=== PATIENT | male | born 1945 | race Caucasian/White ===

== ENCOUNTER 2019-03-06 20:16 | Emergency (ER) | payer MEDICARE, BC ==
--- OUTSIDE RECORDS SUMMARY | 2019-03-06 20:23 | XMS REPORT | Continuity of Care Document ---
:1945 External Reference #:[id number] Author Name Anibal Moreau M.D., [facility], [facility] (transmitted by agent of provider Vianney Hercules) Address [address] 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 Social History Type Date Description Comments Sex Unknown Tobacco Use Start: Unknown End: Former Cigarette Smoker Unknown Smoking Status Reviewed: 02/25/19 Former Cigarette Smoker ETOH Use Occasionally consumes liquor Tobacco Use Start: Unknown End: Patient is a former while in college Unknown smoker Recreational Drug Use Denies Drug Use Exercise Type/Frequency Exercises rarely Allergies, Adverse Reactions, Alerts Active Allergies Reaction Severity Comments Date Lipitor night sweats 40 + MG 06/29/2013 Crestor Night sweats 09/09/2014 Medications Active Medications SIG Qnty Indications Ordering Date Provider Crestor 1 by mouth every 90tabs Anibal Byrd 09/24/2018 5mg Tablets day (until sylvia Moreau M.D., available again) [facility] Lescol 1 tab daily at 90caps Anibal Byrd 09/09/2014 20mg Capsules bedtime Brayden Moreau, (currently on FACJODIE Carpio backorder. Pt taking Crestor until Lescol available again) Cyclobenzaprine HCL 1 po qd prn 30tabs Unknown 10mg Tablets Lexapro 1 by mouth every Unknown 10mg Tablets day Nitrostat one sl q5min up 25tabs Anibal Byrd 0.4mg Tablets Sub to 3 doses as Brayden Moreau, needed as needed JODIE LIGHT chest pain, if no relief call 911 Lorazepam take 1 tablet as 30tabs Unknown 0.5mg Tablets needed qhs Aspirin 1 by mouth every Unknown 81mg Tablets day Acetaminophen Extra 2 po qam 90tabs Unknown Strength 500mg Tablets Mucinex DM prn Unknown Vesicare 1 by mouth every Unknown 10mg Tablets day Multi Vitamin 1 by mouth every Unknown Tablets day Carbidopa-Levodopa ER 1 by mouth every Unknown night at bedtime 25-100mg Tablets ER Escitalopram Oxalate 1 by mouth every Unknown 10mg day Tablets Medications Administered in Office Medication SIG Qnty Indications Ordering Provider Date Inj, Regadenoson, 0.1 MG Anibal Moreau M.D., 10/17/2015 Injection JODIE LIGHT Technetium TC 99M Anibal Moreau M.D., 10/17/2015 Tetrofosmin, Per Unit Dose JODIE LIGHT Up To 40 Millicuries Injection Immunizations Description No Information Available Vital Signs Date Vital Result Comment 02/25/2019 11:09am Height 72 inches 6'0" Weight 298.00 lb with shoes Heart Rate 70 /min BP Systolic Sitting 110 mmHg Lue lg cuff BP Diastolic Sitting 70 mmHg Lue lg cuff BP Systolic Standing 108 mmHg Lue lg cuff BP Diastolic Standing 70 mmHg Lue lg cuff Respiratory Rate 14 /min BMI (Body Mass Index) 40.4 kg/m2 Ejection Fraction 55-60% date 09/23/2015 ECHO 11/20/2017 12:59pm Height 72 inches 6'0" Weight 305.00 lb with shoes Heart Rate 63 /min BP Systolic Sitting 110 mmHg lue lg cuff BP Diastolic Sitting 80 mmHg lue lg cuff BP Systolic Standing 102 mmHg BP Diastolic Standing 60 mmHg Respiratory Rate 20 /min BMI (Body Mass Index) 41.4 kg/m2 Ejection Fraction 55-60% 09/23/2015 echo Results Test Acquired Date Facility Test Result H/L Range Note FLP/Alt Panel 09/09/2018 [facility] Alt 6 U/L Low 7-[address] [place] [address] [phone] Lipid Profile 09/09/2018 [facility] Triglycerides 208 mg/dL 2 (Trig/Chol/HDL) [address] [place] [address] [phone] Cholesterol 150 mg/dL 3 HDL Cholesterol 39.3 mg/dL 4 LDL Cholesterol 69 mg/dL 5 1 FASTING 12 HOUR 2 Desirable: <150 Borderline High: 150-199 High: 200-499 Very High: >500 3 Desirable: <200 Borderline High: 200-239 High: >239 4 Low: <40 Desirable: 40-60 High: >60 5 Desirable: <100 Near Optimal: 100-129 Borderline High: 130-159 High: 160-189 Very High: >189 Procedures Date Code Description Status 02/25/2019 93775 EKG Tracing & Interpretation Completed Medical Devices Description No Information Available Encounters Description No Information Available Assessments Date Code Description Provider 02/25/2019 I25.10 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 Please continue to exercise as able.Follow up:one year after echo Functional Status Description No Information Available Mental Status Description No Information Available Referrals Description No Information Available
[2019-03-06 20:27] VITALS: BP 119/67
--- NOTE | 2019-03-06 21:09 | UC ---
Skin Complaint HPI - HPI Summary HPI Summary: AROUND NOON TODAY PATIENT HAD SUDDEN ONSET OF DISCOMFORT AND SWELLING OF HIS LEFT GREAT TOE. HE SAW WHAT LOOKED TO BE A RUPTURED BLISTER ON THE PLANTAR SURFACE OF HIS LEFT GREAT TOE. IT HAS BEEN DRAINING CLEAR FLUID AND OVER THE COURSE OF THE DAY HIS FOOT AND ANKLE BECAME RED, WARM AND SWOLLEN. NO FEVER. NO JOINT PAIN. DOES NOT RECALL STEPPING ON ANY FOREIGN OBJECTS. NO NEW SHOES. DENIES HISTORY OF DIABETES. 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 - History of Current Complaint Chief Complaint: UCSkin Time Seen by Provider: 03/06/19 20:45 Stated Complaint: FOOT PAIN Hx Obtained From: Patient Onset/Duration: Sudden Onset, Lasting Hours, Still Present Timing: Constant Onset Severity: Moderate Current Severity: Moderate Pain Intensity: 3 Pain Scale Used: 0-10 Numeric Location: Foot (Left) - LEFT GREAT TOE Character: Swelling, Pain, Redness Aggravating Factor(s): Touch Alleviating Factor(s): Nothing Associated Signs & Symptoms: Positive: Drainage, Tenderness - Allergy/Home Medications Allergies/Adverse Reactions: Allergies Allergy/AdvReac Type Severity Reaction Status Date / Time No Known Allergies Allergy Verified 03/06/19 20:27 Home Medications: Home Medications Carbidopa/Levodopa ER 25/100 [Carbidopa-Levo ER 25-100 Tab] 1 tab PO 1200 [History Confirmed 03/06/19] Carbidopa/Levodopa ER 25/100 [Carbidopa-Levo ER 25-100 Tab] 1 tab PO 2000 [History Confirmed 03/06/19] Carbidopa/Levodopa ER 25/100 [Carbidopa-Levo ER 25-100 Tab] 2.5 tab PO BID 03/06 [History Confirmed 03/06/19] Gabapentin CAP(*) [Neurontin 100 mg CAP(*)] 100 mg PO BID 03/06/19 [History Confirmed 03/06/19] Nitroglycerin TAB 0.4 MG* 0.4 mg SL . NEEDED PRN 03/06/19 [History Confirmed 03/06/19] Solifenacin Succinate [Vesicare] 10 mg PO DAILY 03/06/19 [History Confirmed ] PMH/Surg Hx/FS Hx/Imm Hx Other Neurological History: PARKINSONS, PERIPHERAL NEUROPATHY Psychological History: Anxiety Other Cancer History: SKIN CANCER - Surgical History Surgical History: Yes Surgery Procedure, Year, and Place: TONSILLECTOMY 1951, VARICOCELE REPAIR 1975, . SKIN CA 2006, OPEN HEART QUADRUPLE BYPASS 2005 - Social History Alcohol Use: Occasionally Alcohol Amount: 2 drinks/week Substance Use Type: None Smoking Status (MU): Never Smoked Tobacco Review of Systems All Other Systems Reviewed And Are Negative: Yes Constitutional: Positive: Negative Skin: Positive: Other - REDNESS, DRAINAGE Respiratory: Positive: Negative Cardiovascular: Positive: Negative Gastrointestinal: Positive: Negative Musculoskeletal: Positive: Decreased ROM, Edema. Negative: Arthralgia Physical Exam Triage Information Reviewed: Yes Appearance: Well-Appearing, No Pain Distress, Well-Nourished Vital Signs: Initial Vital Signs Temp 96.7 F 03/06/19 20:21 Pulse 80 03/06/19 20:21 Resp 20 03/06/19 20:21 BP 119/67 03/06/19 20:21 Pulse Ox 93 03/06/19 20:21 Vital Signs Reviewed: Yes Eyes: Positive: Conjunctiva Clear ENT: Positive: Hearing grossly normal Neck: Positive: Supple Respiratory: Positive: No respiratory distress, No accessory muscle use Cardiovascular: Positive: Pulses Normal Abdomen Description: Positive: Soft Musculoskeletal: Positive: ROM Limited @ - LEFT GREAT TOE, Edema @ - LEFT GREAT TOE, FOOT, ANKLE Neurological: Positive: Alert Psychological: Positive: Age Appropriate Behavior Skin: Positive: Other - 1CM RUPTURED BLISTER PLANTAR SURFACE LEFT GREAT TOE WITH SEROUS DRAINAGE Course/Dx - Course Course Of Treatment: NO FOREIGN BODY SEEN ON WET READ OF X-RAYS TODAY. OFFICIAL RADIOLOGY READ PENDING. WILL TREAT FOR CELLULITIS WITH BACTRIM TWICE DAILY FOR 10 DAYS. ADVISED HOT SOAKS AND REGULAR DRESSING CHANGES. SPECIMEN SENT FOR CULTURE. TO THE ER IF SYMPTOMS WORSEN. DURING THE ENCOUNTER PATIENT WAS HEARD TO BE WHEEZING INTERMITTENTLY. O2 SAT 93 % ON ROOM AIR. PATIENT REPORTS HIS BASELINE O2 SAT IS ABOUT 95%. HE DENIED ANY RESPIRATORY COMPLAINTS. NO SHORTNESS OF BREATH, CHEST PAIN, NAUSEA. RECHECK OXYGEN SATURATION RANGED FROM 89% TO 95%. LUNGS CLEAR DOWN TO THE BASES. NO ACUTE INTERVENTION TODAY. FOLLOW-UP WITH PCP NEXT WEEK. TO THE ER WITHOUT FAIL IF HE DEVELOPS SHORTNESS OF BREATH, CHEST PAIN, NAUSEA OR ANY OTHER CONCERNING SYMPTOMS. - Diagnoses Provider Diagnosis: Cellulitis of great toe, left Discharge ED - Sign-Out/Discharge Documenting (check all that apply): Patient Departure All imaging exams completed and their final reports reviewed: No - Discharge Plan Condition: Stable Disposition: HOME Prescriptions: Sulfamethox/Trimethoprim DS* [Bactrim DS 800/160 TAB*] 1 tab PO BID #18 tab Patient Education Materials: Cellulitis (ED) Referrals: Mu Del Rosario MD [Primary Care Provider] - 1 Week Additional Instructions: YOU HAVE A SKIN INFECTION LIKELY STEMMING FROM THE RUPTURED BLISTER ON THE BOTTOM OF YOUR LEFT GREAT TOE. TAKE THE ANTIBIOTICS TWICE DAILY FOR THE FULL 10 DAYS. HOT SOAKS 4 TIMES DAILY ABLE. IN BETWEEN SOAKS KEEP THE TOE CLEAN AND DRY AND COVERED WITH A NONSTICK BANDAGE UNTIL IT HEALS. SWAB OBTAINED AND SENT FOR CULTURE. WE WILL CALL YOU IF YOUR MEDICATION NEEDS TO BE CHANGED. GO TO THE ER WITHOUT FAIL IF YOU DEVELOP CONTINUED SPREADING REDNESS OF THE SKIN , PERSISTENT PURULENT DRAINAGE, INCREASED PAIN/JOINT PAIN, FEVER OR ANY OTHER CONCERNING SYMPTOMS. YOUR OXYGEN SATURATION RANGED FROM 89% TO 96% WHILE HERE IN THE URGENT CARE. YOU HAVE NO RESPIRATORY SYMPTOMS AT PRESENT NO ACUTE INTERVENTION TODAY HOWEVER I RECOMMEND YOU FOLLOW-UP WITH YOUR PCP WITHIN A WEEK FOR A RECHECK. GO TO THE ER WITHOUT FAIL IF YOU DEVELOP SHORTNESS OF BREATH, CHEST PAIN, NAUSEA , DIZZINESS OR ANY OTHER CONCERNING SYMPTOMS. - Billing Disposition and Condition Condition: STABLE Disposition: Home
[2019-03-06] MEDS ORDERED: Sulfamethox/Trimethoprim DS 800/160* TAB PO ONE (21:21)
--- NOTE | 2019-03-07 14:06 | UC ---
- Progress Note Progress Note: PROGRESS NOTE: LAB RESULTS:wound Gram stain and culture from the patient's toe shows positive staph aureus, but negative MRSA. Wound culture is pending. MDM:patient is on Bactrim and this should cover the staph aureus. Final wound culture is pending. At this time, no change in treatment. Bonifacio Goddard MD Course/Dx - Diagnoses Provider Diagnoses: Cellulitis of great toe, left Discharge ED - Sign-Out/Discharge Documenting (check all that apply): Post-Discharge Follow Up All imaging exams completed and their final reports reviewed: No - Discharge Plan Condition: Stable Disposition: HOME Prescriptions: Sulfamethox/Trimethoprim DS* [Bactrim DS 800/160 TAB*] 1 tab PO BID #18 tab Patient Education Materials: Cellulitis (ED) Referrals: Mu Del Rosario MD [Primary Care Provider] - 1 Week Additional Instructions: YOU HAVE A SKIN INFECTION LIKELY STEMMING FROM THE RUPTURED BLISTER ON THE BOTTOM OF YOUR LEFT GREAT TOE. TAKE THE ANTIBIOTICS TWICE DAILY FOR THE FULL 10 DAYS. HOT SOAKS 4 TIMES DAILY ABLE. IN BETWEEN SOAKS KEEP THE TOE CLEAN AND DRY AND COVERED WITH A NONSTICK BANDAGE UNTIL IT HEALS. SWAB OBTAINED AND SENT FOR CULTURE. WE WILL CALL YOU IF YOUR MEDICATION NEEDS TO BE CHANGED. GO TO THE ER WITHOUT FAIL IF YOU DEVELOP CONTINUED SPREADING REDNESS OF THE SKIN , PERSISTENT PURULENT DRAINAGE, INCREASED PAIN/JOINT PAIN, FEVER OR ANY OTHER CONCERNING SYMPTOMS. YOUR OXYGEN SATURATION RANGED FROM 89% TO 96% WHILE HERE IN THE URGENT CARE. YOU HAVE NO RESPIRATORY SYMPTOMS AT PRESENT NO ACUTE INTERVENTION TODAY HOWEVER I RECOMMEND YOU FOLLOW-UP WITH YOUR PCP WITHIN A WEEK FOR A RECHECK. GO TO THE ER WITHOUT FAIL IF YOU DEVELOP SHORTNESS OF BREATH, CHEST PAIN, NAUSEA , DIZZINESS OR ANY OTHER CONCERNING SYMPTOMS. - Billing Disposition and Condition Condition: STABLE Disposition: Home
--- NOTE | 2019-03-07 14:25 | UC ---
- Progress Note Progress Note: PROGRESS NOTE: X RAY RESULTS:TECHNIQUE: 3 views of the left great toe were obtained. FINDINGS: Depicted on the lateral and oblique view of the left great toe there is a 3 mm faint hyperdense focus in the soft tissues plantar from the left great toe distal phalanx. The bones are otherwise intact and anatomically aligned. IMPRESSION: Possible 3 mm foreign body in the soft tissues plantar from the left great toe distal phalanx. MDM: patient with cellulitis with the x-ray reading of possible tiny foreign body in the soft tissue of the left great toe. The plan is to call this patient and have him follow up for evaluation of both his cellulitis as well as a possible foreign body. Bonifacio Goddard MD Course/Dx - Diagnoses Provider Diagnoses: Cellulitis of great toe, left Discharge ED - Sign-Out/Discharge Documenting (check all that apply): Post-Discharge Follow Up All imaging exams completed and their final reports reviewed: Yes - Discharge Plan Condition: Stable Disposition: HOME Prescriptions: Sulfamethox/Trimethoprim DS* [Bactrim DS 800/160 TAB*] 1 tab PO BID #18 tab Patient Education Materials: Cellulitis (ED) Referrals: Mu Del Rosario MD [Primary Care Provider] - 1 Week Additional Instructions: YOU HAVE A SKIN INFECTION LIKELY STEMMING FROM THE RUPTURED BLISTER ON THE BOTTOM OF YOUR LEFT GREAT TOE. TAKE THE ANTIBIOTICS TWICE DAILY FOR THE FULL 10 DAYS. HOT SOAKS 4 TIMES DAILY ABLE. IN BETWEEN SOAKS KEEP THE TOE CLEAN AND DRY AND COVERED WITH A NONSTICK BANDAGE UNTIL IT HEALS. SWAB OBTAINED AND SENT FOR CULTURE. WE WILL CALL YOU IF YOUR MEDICATION NEEDS TO BE CHANGED. GO TO THE ER WITHOUT FAIL IF YOU DEVELOP CONTINUED SPREADING REDNESS OF THE SKIN , PERSISTENT PURULENT DRAINAGE, INCREASED PAIN/JOINT PAIN, FEVER OR ANY OTHER CONCERNING SYMPTOMS. YOUR OXYGEN SATURATION RANGED FROM 89% TO 96% WHILE HERE IN THE URGENT CARE. YOU HAVE NO RESPIRATORY SYMPTOMS AT PRESENT NO ACUTE INTERVENTION TODAY HOWEVER I RECOMMEND YOU FOLLOW-UP WITH YOUR PCP WITHIN A WEEK FOR A RECHECK. GO TO THE ER WITHOUT FAIL IF YOU DEVELOP SHORTNESS OF BREATH, CHEST PAIN, NAUSEA , DIZZINESS OR ANY OTHER CONCERNING SYMPTOMS. - Billing Disposition and Condition Condition: STABLE Disposition: Home
== END 2019-03-06 21:37 | disposition home or self-care (01) ==
LOC: UCEAST 20:16
DX: L03.032 Cellulitis of left toe (principal); G20 Parkinson's disease; G62.9 Polyneuropathy, unspecified; Z85.828 Personal history of other malignant neoplasm of skin
CPT/HCPCS: 87070; 87077; 87186; 87205; 87640; 87641; 99212; A9270-GY; G0463

== ENCOUNTER 2020-02-25 12:41 | Inpatient (IN) ==
[2020-02-25 14:20] LABS: ABS Eosinophils 0.1 10^3/ul (0-0.6); ABS Lymphocytes 1.6 10^3/ul (1.0-4.8); ABS Monocytes 0.5 10^3/ul (0-0.8); ABS Neutrophils 4.1 10^3/ul (1.5-7.7); Eosinophil % 1.4 %; Hematocrit 52 % (42-52); Hemoglobin 16.9 g/dL (14.0-18.0); Lymphocyte % 25.2 %; Mean Corpuscular HGB Conc 33 g/dL (31-36); Mean Corpuscular Hemoglobin 31 pg (27-31); Mean Corpuscular Volume 96 fL (80-94); Mean Platelet Volume 9.8 fL (7.4-10.4); Nucleated Red Blood Cells % 0.1; Platelet Count 180 10^3/uL (150-450); Red Blood Count 5.45 10^6 /uL (4.18-5.48); Red Cell Distribution Width 15 % (10-15); White Blood Count 6.3 10^3/uL (3.5-10.8)
[2020-02-25 14:33] LABS: Albumin 4.1 g/dL (3.2-5.2); Albumin/Globulin Ratio 1.4 (1-3); BUN/Creatinine Ratio 23.9 (8-20); Calcium 9.6 mg/dL (8.6-10.3); EGFR African American 102.7 (>60); EGFR Non-African American 84.9 (>60); Globulin 2.9 g/dL (2-4); Potassium 4.5 mmol/L (3.5-5.0); Total Bilirubin 0.9 mg/dL (0.2-1.0)
[2020-02-25] MEDS: NS 0.9% 1000 ml BAG 1,000 ML IV SCH ×2 (14:51→17:42)
[2020-02-25 17:51] LABS: Urine Appearance Cloudy; Urine Bilirubin Negative (Negative); Urine Blood Negative (Negative); Urine Color Yellow; Urine Glucose Negative (Negative); Urine Ketones Negative (Negative); Urine Nitrite Negative (Negative); Urine Protein Negative (Negative); Urine Specific Gravity 1.008 (1.010-1.030); Urine Urobilinogen Negative (Negative)
[2020-02-25 17:54] LABS: Urine Bacteria Absent (Absent); Urine Red Blood Cell Absent (Absent); Urine Squamous Epithelial Cell Present (Absent); Urine White Blood Cell 2+(11-20/hpf) (Absent)
[2020-02-25] MEDS ORDERED: NS 0.9% 1000 ml BAG 1,000 ML IV SCH (19:15)
[2020-02-25] MEDS ORDERED: Carbidopa/Levodop 25/100 MG TAB PO SCH (21:00)
[2020-02-25] MEDS: Heparin 5000 UNITS/ML 1 mL VIAL SUBCUT SCH (21:52)
[2020-02-25] MEDS: Carbidopa/Levodop 25/100 MG TAB PO SCH (21:56)
[2020-02-26] MEDS: Heparin 5000 UNITS/ML 1 mL VIAL SUBCUT SCH ×3 (06:05→21:25)
[2020-02-26 07:21] LABS: ABS Eosinophils 0.1 10^3/ul (0-0.6); ABS Lymphocytes 1.9 10^3/ul (1.0-4.8); ABS Monocytes 0.6 10^3/ul (0-0.8); ABS Neutrophils 3.6 10^3/ul (1.5-7.7); Eosinophil % 2.3 %; Hematocrit 49 % (42-52); Hemoglobin 15.9 g/dL (14.0-18.0); Lymphocyte % 30.6 %; Mean Corpuscular HGB Conc 33 g/dL (31-36); Mean Corpuscular Hemoglobin 31 pg (27-31); Mean Corpuscular Volume 96 fL (80-94); Mean Platelet Volume 9.7 fL (7.4-10.4); Platelet Count 173 10^3/uL (150-450); Red Blood Count 5.09 10^6 /uL (4.18-5.48); Red Cell Distribution Width 15 % (10-15); White Blood Count 6.3 10^3/uL (3.5-10.8)
[2020-02-26 07:25] LABS: Albumin 3.7 g/dL (3.2-5.2); Calcium 9.2 mg/dL (8.6-10.3); Potassium 4.6 mmol/L (3.5-5.0); Total Bilirubin 0.9 mg/dL (0.2-1.0)
[2020-02-26 07:31] LABS: Albumin/Globulin Ratio 1.4 (1-3); EGFR African American 123.5 (>60); EGFR Non-African American 102.1 (>60); Globulin 2.7 g/dL (2-4); Total Protein 6.4 g/dL (6.4-8.9)
[2020-02-26] MEDS: Carbidopa/Levodop 25/100 MG TAB PO SCH ×5 (08:52→21:25)
[2020-02-26] MEDS: Aspirin EC 81 mg TAB.EC (enteric coated) PO SCH (08:54)
[2020-02-26] MEDS: Polyethylene Glycol 3350 17 GM PACKET PO SCH (08:56)
[2020-02-26] MEDS: Solifenacin 5 mg TAB (NF) PO SCH (08:59)
[2020-02-26] MEDS: FLUVASTATIN PO SCH (08:59)
[2020-02-26] MEDS ORDERED: Carbidopa/Levodop 25/100 MG TAB PO SCH (12:00)
[2020-02-26] MEDS ORDERED: NS 0.9% 1000 ml BAG 1,000 ML IV SCH (18:30)
[2020-02-27] MEDS: Heparin 5000 UNITS/ML 1 mL VIAL SUBCUT SCH ×3 (05:40→20:58)
[2020-02-27] MEDS: Aspirin EC 81 mg TAB.EC (enteric coated) PO SCH (08:36)
[2020-02-27] MEDS: Polyethylene Glycol 3350 17 GM PACKET PO SCH (08:37)
[2020-02-27] MEDS: FLUVASTATIN PO SCH (08:37)
[2020-02-27] MEDS: Carbidopa/Levodop 25/100 MG TAB PO SCH ×5 (08:42→20:58)
[2020-02-27] MEDS: Solifenacin 5 mg TAB (NF) PO SCH (08:42)
[2020-02-27] MEDS: Amoxicillin/Clavul 875/125 TAB (Augmentin 875 tab) PO SCH ×2 (12:21→20:58)
[2020-02-28] MEDS: Heparin 5000 UNITS/ML 1 mL VIAL SUBCUT SCH ×3 (05:23→20:38)
[2020-02-28] MEDS: Amoxicillin/Clavul 875/125 TAB (Augmentin 875 tab) PO SCH ×2 (08:54→20:37)
[2020-02-28] MEDS: Aspirin EC 81 mg TAB.EC (enteric coated) PO SCH (08:56)
[2020-02-28] MEDS: Carbidopa/Levodop 25/100 MG TAB PO SCH ×5 (08:59→20:37)
[2020-02-28] MEDS: Solifenacin 5 mg TAB (NF) PO SCH (09:02)
[2020-02-28] MEDS: Polyethylene Glycol 3350 17 GM PACKET PO SCH (09:02)
[2020-02-28] MEDS: FLUVASTATIN PO SCH (09:02)
[2020-02-28] MEDS ORDERED: Iohexol 350 (CONTRAST) 500 ML MDV IV ONE (18:38)
[2020-02-28] MEDS ORDERED: Heparin DRIP 25,000 UNITS BAG 25,000 UNITS/500 ML BAG IV SCH (21:30)
[2020-02-28 21:40] LABS: ABS Eosinophils 0.2 10^3/ul (0-0.6); ABS Lymphocytes 1.5 10^3/ul (1.0-4.8); ABS Monocytes 0.6 10^3/ul (0-0.8); ABS Neutrophils 3.6 10^3/ul (1.5-7.7); Eosinophil % 3.6 %; Hematocrit 46 % (42-52); Hemoglobin 15.3 g/dL (14.0-18.0); Lymphocyte % 25.5 %; Mean Corpuscular HGB Conc 33 g/dL (31-36); Mean Corpuscular Hemoglobin 32 pg (27-31); Mean Corpuscular Volume 95 fL (80-94); Mean Platelet Volume 9.5 fL (7.4-10.4); Platelet Count 171 10^3/uL (150-450); Red Blood Count 4.84 10^6 /uL (4.18-5.48); Red Cell Distribution Width 14 % (10-15); White Blood Count 5.9 10^3/uL (3.5-10.8)
[2020-02-28] MEDS ORDERED: Heparin 5000 UNITS/ML 1 mL VIAL IV SCH (22:00)
[2020-02-28 22:02] LABS: EGFR African American 97.6 (>60); EGFR Non-African American 80.6 (>60)
[2020-02-29 07:05] LABS: ABS Eosinophils 0.2 10^3/ul (0-0.6); ABS Lymphocytes 2.2 10^3/ul (1.0-4.8); ABS Monocytes 0.8 10^3/ul (0-0.8); ABS Neutrophils 4.4 10^3/ul (1.5-7.7); Hematocrit 47 % (42-52); Hemoglobin 15.6 g/dL (14.0-18.0); Lymphocyte % 29.1 %; Mean Corpuscular HGB Conc 33 g/dL (31-36); Mean Corpuscular Hemoglobin 32 pg (27-31); Mean Corpuscular Volume 96 fL (80-94); Mean Platelet Volume 9.5 fL (7.4-10.4); Platelet Count 160 10^3/uL (150-450); Red Blood Count 4.93 10^6 /uL (4.18-5.48); Red Cell Distribution Width 15 % (10-15); White Blood Count 7.6 10^3/uL (3.5-10.8)
[2020-02-29] MEDS: Polyethylene Glycol 3350 17 GM PACKET PO SCH (08:35)
[2020-02-29] MEDS: Aspirin EC 81 mg TAB.EC (enteric coated) PO SCH (08:36)
[2020-02-29] MEDS: Amoxicillin/Clavul 875/125 TAB (Augmentin 875 tab) PO SCH ×2 (08:36→21:25)
[2020-02-29] MEDS: Carbidopa/Levodop 25/100 MG TAB PO SCH ×5 (08:38→21:26)
[2020-02-29] MEDS: FLUVASTATIN PO SCH (08:40)
[2020-02-29] MEDS: Solifenacin 5 mg TAB (NF) PO SCH (08:41)
[2020-03-01] MEDS ORDERED: Perflutren Lipid Microsphere 3 ML VIAL ONE (08:04)
[2020-03-01] MEDS: Carbidopa/Levodop 25/100 MG TAB PO SCH ×5 (09:12→21:01)
[2020-03-01] MEDS: Amoxicillin/Clavul 875/125 TAB (Augmentin 875 tab) PO SCH ×2 (09:15→21:00)
[2020-03-01] MEDS: FLUVASTATIN PO SCH (09:18)
[2020-03-01] MEDS: Polyethylene Glycol 3350 17 GM PACKET PO SCH (09:18)
[2020-03-01] MEDS: Solifenacin 5 mg TAB (NF) PO SCH (09:18)
[2020-03-01] MEDS: Aspirin EC 81 mg TAB.EC (enteric coated) PO SCH (09:19)
[2020-03-02] MEDS: Polyethylene Glycol 3350 17 GM PACKET PO SCH (09:38)
[2020-03-02] MEDS: FLUVASTATIN PO SCH (09:38)
[2020-03-02] MEDS: Carbidopa/Levodop 25/100 MG TAB PO SCH ×5 (09:48→20:05)
[2020-03-02] MEDS: CMC:Solifenacin 5 mg TAB (NF) PO SCH (09:50)
[2020-03-02] MEDS: Aspirin EC 81 mg TAB.EC (enteric coated) PO SCH (09:51)
[2020-03-02] MEDS: Amoxicillin/Clavul 875/125 TAB (Augmentin 875 tab) PO SCH ×2 (09:51→20:05)
[2020-03-03] MEDS: Aspirin EC 81 mg TAB.EC (enteric coated) PO SCH (08:50)
[2020-03-03] MEDS: FLUVASTATIN PO SCH (08:52)
[2020-03-03] MEDS: CMC:Solifenacin 5 mg TAB (NF) PO SCH (08:52)
[2020-03-03] MEDS: Polyethylene Glycol 3350 17 GM PACKET PO SCH (08:54)
[2020-03-03] MEDS: Carbidopa/Levodop 25/100 MG TAB PO SCH ×3 (09:02→15:45)
[2020-03-03 11:09] VITALS: BP 69/38
== END 2020-03-03 16:15 | disposition home or self-care (01) | DRG 312 ==
LOC: ED 12:41 → MEDTELE 12:41
PROVIDERS: ADMIT Internal Medicine; ATTEND Internal Medicine

== ENCOUNTER 2020-06-13 15:24 | Observation (INO) ==
[2020-06-13 18:54] LABS: ABS Eosinophils 0.2 10^3/ul (0-0.6); ABS Lymphocytes 1.7 10^3/ul (1.0-4.8); ABS Monocytes 0.5 10^3/ul (0-0.8); ABS Neutrophils 2.8 10^3/ul (1.5-7.7); Hematocrit 45 % (42-52); Lymphocyte % 33.3 %; Mean Corpuscular HGB Conc 33 g/dL (31-36); Mean Corpuscular Hemoglobin 32 pg (27-31); Mean Corpuscular Volume 97 fL (80-94); Mean Platelet Volume 9.1 fL (7.4-10.4); Platelet Count 171 10^3/uL (150-450); Red Blood Count 4.67 10^6 /uL (4.18-5.48); Red Cell Distribution Width 14 % (10-15); White Blood Count 5.2 10^3/uL (3.5-10.8)
[2020-06-13] MEDS ORDERED: NS 0.9% 1000 ml BAG 1,000 ML IV ONE (19:43)
[2020-06-13 19:46] LABS: ALT 5 U/L (7-52); AST 12 U/L (13-39); Albumin 3.9 g/dL (3.2-5.2); Albumin/Globulin Ratio 1.4 (1-3); Alkaline Phosphatase 35 U/L (34-104); Blood Urea Nitrogen 16 mg/dL (6-24); CO2 Carbon Dioxide 30 mmol/L (22-32); Calcium 8.9 mg/dL (8.6-10.3); Globulin 2.7 g/dL (2-4); Glucose 79 mg/dL (70-100); Total Protein 6.6 g/dL (6.4-8.9)
[2020-06-13 20:28] LABS: BUN/Creatinine Ratio 19.8 (8-20); EGFR African American 112.7 (>60); EGFR Non-African American 93.2 (>60)
[2020-06-13 20:33] LABS: Anion Gap 8 mmol/L (2-11); Chloride 103 mmol/L (101-111); Potassium 3.8 mmol/L (3.5-5.0); Sodium 141 mmol/L (135-145)
[2020-06-13] MEDS ORDERED: Iodixanol (CONTRAST) 320 MG/ML 100 ML SDV IV ONE (20:50)
[2020-06-14] MEDS ORDERED: TADALAFIL 20 MG PO PRN (00:38)
[2020-06-14 01:12] LABS: C Reactive Protein < 1.00 mg/L (<8.01)
[2020-06-14 01:55] LABS: Ferritin 59.6 ng/mL (24-336)
[2020-06-14 07:21] LABS: Urine Appearance Cloudy; Urine Bilirubin Negative (Negative); Urine Blood Negative (Negative); Urine Color Yellow; Urine Glucose Negative (Negative); Urine Ketones Trace (Negative); Urine Nitrite Positive (Negative); Urine Protein Negative (Negative); Urine Specific Gravity 1.023 (1.010-1.030); Urine Urobilinogen Negative (Negative)
[2020-06-14 07:24] LABS: Urine Bacteria Absent (Absent); Urine Red Blood Cell 3+(>10/hpf) (Absent); Urine Squamous Epithelial Cell Present (Absent); Urine White Blood Cell 3+(>20/hpf) (Absent)
[2020-06-14] MEDS ORDERED: Perflutren Lipid Microsphere 3 ML VIAL ONE (07:59)
[2020-06-14] MEDS: Vitamin THERAPEUTIC TAB PO SCH (09:20)
[2020-06-14] MEDS: Aspirin EC 81 mg TAB.EC (enteric coated) PO SCH (09:21)
[2020-06-14] MEDS: CMCS: Rosuvastatin 5 mg TAB (NF) PO SCH (09:21)
[2020-06-14] MEDS: Carbidopa/Levodop 25/100 MG TAB PO SCH ×5 (09:30→20:16)
[2020-06-15 06:13] LABS: ABS Eosinophils 0.2 10^3/ul (0-0.6); ABS Lymphocytes 1.5 10^3/ul (1.0-4.8); ABS Monocytes 0.9 10^3/ul (0-0.8); ABS Neutrophils 4.7 10^3/ul (1.5-7.7); Eosinophil % 2.3 %; Hematocrit 45 % (42-52); Lymphocyte % 20.9 %; Mean Corpuscular HGB Conc 34 g/dL (31-36); Mean Corpuscular Hemoglobin 32 pg (27-31); Mean Corpuscular Volume 96 fL (80-94); Mean Platelet Volume 9.2 fL (7.4-10.4); Platelet Count 177 10^3/uL (150-450); Red Blood Count 4.64 10^6 /uL (4.18-5.48); Red Cell Distribution Width 14 % (10-15); White Blood Count 7.3 10^3/uL (3.5-10.8)
[2020-06-15 06:31] LABS: BUN/Creatinine Ratio 25.4 (8-20); Calcium 8.7 mg/dL (8.6-10.3); EGFR African American 140.3 (>60); Potassium 3.5 mmol/L (3.5-5.0)
[2020-06-15] MEDS: Carbidopa/Levodop 25/100 MG TAB PO SCH ×3 (08:46→14:31)
[2020-06-15] MEDS: Aspirin EC 81 mg TAB.EC (enteric coated) PO SCH (08:47)
[2020-06-15] MEDS: Vitamin THERAPEUTIC TAB PO SCH (08:47)
[2020-06-15] MEDS: CMCS: Rosuvastatin 5 mg TAB (NF) PO SCH (08:47)
[2020-06-15 15:02] VITALS: BP 88/49
== END 2020-06-15 17:05 | disposition home or self-care (01) ==
LOC: ED 15:24 → MED 15:24
PROVIDERS: ADMIT Internal Medicine; ATTEND Student in an Organized Health Care Education/Training Program

== ENCOUNTER 2021-01-30 14:24 | Inpatient (IN) ==
[2021-01-30 15:33] LABS: ABS Lymphocytes 0.6 10^3/ul (1.0-4.8); ABS Monocytes 1.1 10^3/ul (0-0.8); ABS Neutrophils 7.7 10^3/ul (1.5-7.7); Eosinophil % 0.2 %; Hematocrit 44 % (42-52); Hemoglobin 14.7 g/dL (14.0-18.0); Lymphocyte % 6.6 %; Mean Corpuscular HGB Conc 33 g/dL (31-36); Mean Corpuscular Hemoglobin 31 pg (27-31); Mean Corpuscular Volume 92 fL (80-94); Mean Platelet Volume 8.7 fL (7.4-10.4); Platelet Count 209 10^3/uL (150-450); Red Cell Distribution Width 14 % (10-15); White Blood Count 9.5 10^3/uL (3.5-10.8)
[2021-01-30 15:46] LABS: Rapid COVID-19 Molecular Undetected (Undetected)
[2021-01-30 16:02] LABS: Influenza A Molecular Negative (Negative); Influenza B Molecular Negative (Negative)
[2021-01-30 16:08] LABS: Troponin I 0.04 ng/mL (<0.03)
[2021-01-30 16:15] LABS: ALT < 3 U/L (7-52); AST 13 U/L (13-39); Albumin 3.8 g/dL (3.2-5.2); Albumin/Globulin Ratio 1.2 (1-3); Alkaline Phosphatase 45 U/L (35-149); Anion Gap 4 mmol/L (2-11); Blood Urea Nitrogen 16 mg/dL (6-24); CO2 Carbon Dioxide 38 mmol/L (22-32); Calcium 8.6 mg/dL (8.6-10.3); Chloride 97 mmol/L (101-111); Globulin 3.3 g/dL (2-4); Glucose 118 mg/dL (70-100); Potassium 3.8 mmol/L (3.5-5.0); Sodium 139 mmol/L (135-145); Total Protein 7.1 g/dL (6.4-8.9)
[2021-01-30] MEDS ORDERED: Iohexol 350 (CONTRAST) 500 ML MDV IV ONE (16:35)
[2021-01-30] MEDS ORDERED: Cefepime 1 GM in Dextrose 1 GM/50 ML BAG IV ONE (18:05)
[2021-01-30] MEDS: Diltiazem IV push/loading dose 5 MG/ML 5 ML vial (25 mg) IV SLOW PU ONE ×2 (18:24→18:41)
[2021-01-30 18:36] LABS: PCO2 Arterial 55 mmHg (35-45); PO2 Arterial 83 mmHg (80-100)
[2021-01-30 18:39] LABS: Urine Appearance Cloudy; Urine Bilirubin Negative (Negative); Urine Blood 3+ (Negative); Urine Color Amber; Urine Glucose Negative (Negative); Urine Ketones Trace (Negative); Urine Nitrite Negative (Negative); Urine Protein 2+(100 mg/dL) (Negative); Urine Specific Gravity 1.021 (1.002-1.030); Urine Urobilinogen Negative (Negative)
[2021-01-30 18:46] LABS: Urine Amorphous Crystals Present (Absent); Urine Bacteria 1+ (Absent); Urine Red Blood Cell 3+(>10/hpf) (Absent); Urine Squamous Epithelial Cell Present (Absent); Urine White Blood Cell 3+(>20/hpf) (Absent)
[2021-01-30] MEDS ORDERED: Lactated Ringers 1000 ml BAG 1,000 ML IV ONE ×2 (18:57→19:43)
[2021-01-30] MEDS ORDERED: Vancomycin 1,000 MG in NS 0.9% 250 ml 250 ML IVPB SCH (19:00)
[2021-01-30] MEDS ORDERED: Piperacillin/Tazobac ADVAN 3.375 GM in NS 0.9% 100 ml BAG 100 ML IV SCH (19:00)
[2021-01-30] MEDS ORDERED: Diltiazem IV BAG D5W Premix 125 MG/125 ML BAG IV SCH (19:00)
[2021-01-30 19:24] LABS: ALT < 3 U/L (7-52); AST 14 U/L (13-39); Albumin 3.3 g/dL (3.2-5.2); Albumin/Globulin Ratio 1.1 (1-3); Alkaline Phosphatase 38 U/L (35-149); Anion Gap 2 mmol/L (2-11); Blood Urea Nitrogen 16 mg/dL (6-24); CO2 Carbon Dioxide 37 mmol/L (22-32); Calcium 8.3 mg/dL (8.6-10.3); Chloride 99 mmol/L (101-111); Globulin 2.9 g/dL (2-4); Glucose 115 mg/dL (70-100); Sodium 138 mmol/L (135-145); Total Protein 6.2 g/dL (6.4-8.9)
[2021-01-30] MEDS ORDERED: Zosyn 3.375 GM IV - ED ONCE IV ONE (19:30)
[2021-01-30 19:46] LABS: Troponin I 0.27 ng/mL (<0.03)
[2021-01-31] MEDS: Carbidopa/Levodop CR 50/200 TAB.CR PO SCH ×2 (00:14→21:02)
[2021-01-31 04:22] LABS: Troponin I 0.18 ng/mL (<0.03)
[2021-01-31] MEDS ORDERED: Acetaminophen IV 1 GM/100ML 100 ML IV ONE (04:26)
[2021-01-31] MEDS ORDERED: Zosyn per Pharmacy NOTE FOLLOW UP PRN (04:44)
[2021-01-31] MEDS ORDERED: ZOSYN 3.375 GM x ONE DOSE over 30 miuntes IV (05:00)
[2021-01-31] MEDS: Carbidopa/Levodop 25/100 MG TAB PO SCH ×5 (05:39→21:02)
[2021-01-31 05:59] LABS: ABS Lymphocytes 0.8 10^3/ul (1.0-4.8); ABS Monocytes 1.1 10^3/ul (0-0.8); Hematocrit 40 % (42-52); Hemoglobin 13.2 g/dL (14.0-18.0); Mean Corpuscular HGB Conc 33 g/dL (31-36); Mean Corpuscular Hemoglobin 31 pg (27-31); Mean Corpuscular Volume 94 fL (80-94); Mean Platelet Volume 8.9 fL (7.4-10.4); Platelet Count 191 10^3/uL (150-450); Red Blood Count 4.26 10^6 /uL (4.18-5.48); Red Cell Distribution Width 14 % (10-15); White Blood Count 8.9 10^3/uL (3.5-10.8)
[2021-01-31 06:35] LABS: INR 1.79 (0.86-1.15)
[2021-01-31 06:58] LABS: Calcium 8.2 mg/dL (8.6-10.3); Potassium 3.7 mmol/L (3.5-5.0)
[2021-01-31] MEDS ORDERED: Potassium Chlor 20 meq TAB.ER PO ONE (07:05)
[2021-01-31 08:50] LABS: Magnesium 1.6 mg/dL (1.9-2.7); Phosphorus 3.2 mg/dL (2.5-5.0)
[2021-01-31] MEDS: Polyethylene Glycol 3350 17 GM PACKET PO SCH (09:26)
[2021-01-31 10:01] LABS: Troponin I 0.11 ng/mL (<0.03)
[2021-01-31] MEDS ORDERED: Ciprofloxacin 0.3% OPTH.SOL BTL BOTH EYES SCH (12:00)
[2021-01-31] MEDS: Ciprofloxacin 0.3% OPTH.SOL BTL BOTH EYES SCH ×4 (12:52→21:03)
[2021-01-31] MEDS: Piperacillin/Tazobac ADVAN 3.375 GM in NS 0.9% 100 ml BAG 100 ML IV SCH ×2 (12:54→22:59)
[2021-01-31] MEDS ORDERED: Lactated Ringers 1000 ml BAG 1,000 ML IV SCH (13:00)
[2021-01-31] MEDS ORDERED: Magnesium Sulf 4 GM/100 ML IV 4,000 MG/100 ML BAG IVPB ONE (16:14)
[2021-01-31] MEDS ORDERED: Acetaminophen IV 1 GM/100ML 100 ML IV PRN (18:02)
[2021-02-01] MEDS: Carbidopa/Levodop 25/100 MG TAB PO SCH ×5 (05:02→20:57)
[2021-02-01] MEDS: Piperacillin/Tazobac ADVAN 3.375 GM in NS 0.9% 100 ml BAG 100 ML IV SCH ×3 (05:02→21:58)
[2021-02-01 05:38] LABS: Hematocrit 40 % (42-52); Hemoglobin 13.3 g/dL (14.0-18.0); Mean Corpuscular HGB Conc 33 g/dL (31-36); Mean Corpuscular Hemoglobin 31 pg (27-31); Mean Corpuscular Volume 93 fL (80-94); Mean Platelet Volume 9.2 fL (7.4-10.4); Platelet Count 213 10^3/uL (150-450); Red Blood Count 4.34 10^6 /uL (4.18-5.48); Red Cell Distribution Width 15 % (10-15); White Blood Count 7.9 10^3/uL (3.5-10.8)
[2021-02-01 05:48] LABS: CO2 Carbon Dioxide 38 mmol/L (22-32); Calcium 8.4 mg/dL (8.6-10.3); Chloride 98 mmol/L (101-111); Sodium 139 mmol/L (135-145)
[2021-02-01 05:52] LABS: Anion Gap 3 mmol/L (2-11)
[2021-02-01 05:54] LABS: Blood Urea Nitrogen 15 mg/dL (6-24); Glucose 98 mg/dL (70-100)
[2021-02-01 06:34] LABS: Magnesium 2.2 mg/dL (1.9-2.7); Potassium Redraw 3.8 mmol/L (3.5-5.0)
[2021-02-01 06:40] LABS: Phosphorus 3.7 mg/dL (2.5-5.0)
[2021-02-01] MEDS: Ciprofloxacin 0.3% OPTH.SOL BTL BOTH EYES SCH (09:16)
[2021-02-01] MEDS: Polyethylene Glycol 3350 17 GM PACKET PO SCH (09:17)
[2021-02-01] MEDS: Ciprofloxacin 0.3% OPTH.SOL BTL LEFT EYE SCH ×3 (13:49→20:56)
[2021-02-01] MEDS: Carbidopa/Levodop CR 50/200 TAB.CR PO SCH (20:55)
[2021-02-02] MEDS ORDERED: Metoprolol Tartrate 5 mg VIAL 5 ml VIAL (1 mg/ml) IV PRN (00:12)
[2021-02-02] MEDS ORDERED: Metoprolol Tartrate 5 mg VIAL 5 ml VIAL (1 mg/ml) ONE (00:13)
[2021-02-02] MEDS ORDERED: Diltiazem IV push/loading dose 5 MG/ML 5 ML vial (25 mg) ONE (00:23)
[2021-02-02] MEDS ORDERED: Diltiazem IV push/loading dose 5 MG/ML 5 ML vial (25 mg) IV SLOW PU ONE (00:25)
[2021-02-02 04:45] LABS: ABS Lymphocytes 0.9 10^3/ul (1.0-4.8); ABS Monocytes 1.1 10^3/ul (0-0.8); ABS Neutrophils 4.5 10^3/ul (1.5-7.7); Eosinophil % 0.5 %; Hematocrit 38 % (42-52); Hemoglobin 12.4 g/dL (14.0-18.0); Lymphocyte % 14.2 %; Mean Corpuscular HGB Conc 33 g/dL (31-36); Mean Corpuscular Hemoglobin 30 pg (27-31); Mean Corpuscular Volume 92 fL (80-94); Mean Platelet Volume 8.5 fL (7.4-10.4); Platelet Count 192 10^3/uL (150-450); Red Blood Count 4.08 10^6 /uL (4.18-5.48); Red Cell Distribution Width 14 % (10-15); White Blood Count 6.5 10^3/uL (3.5-10.8)
[2021-02-02 05:04] LABS: Calcium 8.2 mg/dL (8.6-10.3); Magnesium 1.9 mg/dL (1.9-2.7); Potassium 3.8 mmol/L (3.5-5.0)
[2021-02-02] MEDS: Carbidopa/Levodop 25/100 MG TAB PO SCH ×5 (05:37→20:59)
[2021-02-02] MEDS: Piperacillin/Tazobac ADVAN 3.375 GM in NS 0.9% 100 ml BAG 100 ML IV SCH ×3 (05:44→23:08)
[2021-02-02] MEDS ORDERED: Magnesium Sulfate 2 gm BAG 2 GM/50 ML BAG IVPB ONE (06:25)
[2021-02-02] MEDS ORDERED: Potassium Chloride LIQUID 20 MEQ/15 ML LIQUID PO ONE (08:00)
[2021-02-02] MEDS: Polyethylene Glycol 3350 17 GM PACKET PO SCH (09:47)
[2021-02-02] MEDS: Ciprofloxacin 0.3% OPTH.SOL BTL LEFT EYE SCH ×4 (09:47→21:00)
[2021-02-02] MEDS: Carbidopa/Levodop CR 50/200 TAB.CR PO SCH (20:55)
[2021-02-03] MEDS: Carbidopa/Levodop 25/100 MG TAB PO SCH ×3 (05:30→14:07)
[2021-02-03] MEDS: Piperacillin/Tazobac ADVAN 3.375 GM in NS 0.9% 100 ml BAG 100 ML IV SCH ×2 (05:31→14:02)
[2021-02-03 06:17] VITALS: BP 133/80
[2021-02-03] MEDS: Ciprofloxacin 0.3% OPTH.SOL BTL LEFT EYE SCH ×2 (10:11→14:03)
[2021-02-03] MEDS: Polyethylene Glycol 3350 17 GM PACKET PO SCH ×2 (10:13→10:38)
== END 2021-02-03 17:16 | disposition home or self-care (01) | DRG 871 ==
LOC: ED 14:24 → EDHOLD 18:35 → ICU 01-31 07:03 → MEDTELE 02-02 16:18
PROVIDERS: ADMIT Internal Medicine; ATTEND Internal Medicine